=== PATIENT | female | born 1990 | race Caucasian/White ===

== ENCOUNTER → 2021-05-09 | Outpatient (CLI) | payer OTHER ==
[~2021-05-09] MED LIST: ALBUTEROL2.5 MG/3 M INH; AMOXICILLIN875 MG PO; AUGMENTIN 875-1 EACH PO; CEFUROXIME500 MG PO; COLACE 100MG C100 MG PO; DECADRON6 MG PO; DULERA 100 MCG8.8 GM INH; Magic Mouth Wash PO; PYRIDIUM200 MG PO; ROBITUSSIN DM UD5 ML PO; VENTOLIN HFA 66.7 GM INH
== END ==
LOC: EXRD 15:08
DX: R13.10 Dysphagia, unspecified (principal)
CPT/HCPCS: 76536